=== PATIENT | male | born 1970 | race Caucasian/White ===

== ENCOUNTER 2020-10-09 00:15 | Emergency (ER) | payer SELFPAY ==
[2020-10-09 00:57] LABS: Bacteria/HPF 2+ HPF (None Seen); Bilirubin Negative (Negative); Blood, Urine 3+ (Negative); Clarity Clear (Clear); Glucose, Urine (Dipstick) Normal (Negative); Ketone, Urine Negative (Negative); Leukocyte 250 Leu/uL (Negative); Nitrite Negative (Negative); Protein, Urine (Dipstick) 30 mg/dL (Neg-Trace); Specific Gravity, Urine 1.037 (1.002-1.036); Squamous Epithelial 0-3 HPF (0-3); WBC/HPF Greater than 50 HPF (0-3); pH, Urine 5.5 (5.0-9.0)
[2020-10-09] MEDS ORDERED: Lidocaine 2% PF 5 ML VIAL ONE (01:34)
[2020-10-09] MEDS ORDERED: cefTRIAXone\\ROCEPHIN 250 MG VIAL ONE (01:34)
[2020-10-09] MEDS ORDERED: Lidocaine 1% PF 5 ML VIAL ONE (01:35)
--- NOTE | 2020-10-09 08:52 | ULT ---
PRELIMINARY REPORT/[facility]/EMERGENCY AFTER HOURS PROCEDURE EXAM: US Scrotum. CLINICAL HISTORY: HX: RT TESTICLE PAIN AND SWELLING. TECHNIQUE: Real-time ultrasound of the scrotum with color Doppler and image documentation. COMPARISON: None provided. FINDINGS: RIGHT TESTICLE: No mass. Increased Doppler flow. Measures 4.6 x 3.1 x 3.3 cm LEFT TESTICLE: Appears heterogeneous with suspected hypoechoic mass measuring 3.1 x 1.3 x 2.4 cm. Normal Doppler gilbert w. Measures 3.7 x 1.7 x 3.2 cm EPIDIDYMIDES: The epididymal regions appear enlarged bilaterally with increased flow along with bilateral cysts SCROTUM: A right-sided hydrocele is noted. IMPRESSION: Increased flow in the epididymal regions bilaterally as well as the RIGHT testis suggesting bilateral epididymitis along with right-sided orchitis. A small right-sided hydrocele is noted. The LEFT testis appears heterogeneous and appears to demonstrate a suspected hypoechoic mass measuring 3.1 x 1 .3 x 2.4 cm. There is no evidence for torsion on either side ELECTRONICALLY SIGNED BY: Sonido Fonseca MD Oct 09, 2020 1:20:17 AM MINUTE CLERK This report is intended for review by the ordering physician only, in accordance of law. If you recei ve this report in error, please call [facility] at [phone]. FINAL REPORT Exam: Testicular ultrasound HISTORY: Right testicular pain and swelling COMPARISON: None TECHNIQUE: Sagittal and transverse imaging of the left and right hemiscrotum are performed. Testicula r Doppler is performed with grayscale, color-flow, Doppler imaging and spectral waveform analysis. FINDINGS: Right hemiscrotum: Testicle: Homogeneous echotexture. No intratesticular masses. Right testicle measurements: 4.7 x 3.2 x 3.3 Right epididymis: Anechoic focus in the epididymis, measuring 0.6 cm. Hydrocele: Small Left hemiscrotum: Left testicle: There is a overall heterogeneity involving the right testicular echotexture. There is a hypoechoic focus within the testicle measuring 1.4 x 3.2 x 2.5 cm. Intratesticular mass cannot be excluded. Left testicle measurements: 1.7 x 3.3 x 3.8 cm Left epididymis: Multiple anechoic foci measuring 0.3 cm. Hydrocele: None Testicular Doppler: There is asymmetric increased flow in the right testicle and right epididymis. IMPRESSION: 1. This report is in agreement with initial report by [facility]. 2. Right-sided epididymoorchitis. 3. Increased flow to the left epididymis. Correlate for left-sided epididymitis. 4. Possible left intratesticular mass as described above. Transcribed Date/Time: 10/09/2020 9:03 AM
[2020-10-12 00:25] LABS: Chlam.trachomatis by PCR,Urine Not Detected (NotDetected)
== END 2020-10-09 02:18 | disposition home or self-care (01) ==
LOC: ERS 00:15
DX: N45.3 Epididymo-orchitis (principal); I10 Essential (primary) hypertension; F17.220 Nicotine dependence, chewing tobacco, uncomplicated; Z79.899 Other long term (current) drug therapy
CPT/HCPCS: 76870; 81003; 81015; 87077; 87086; 87491; 87591; 93976; 96372; J0696; J2001